=== PATIENT | male | born 1960 | race Caucasian/White ===

== ENCOUNTER → 2017-05-27 | Outpatient (CLI) | payer OTHER ==
[~2017-05-27] MED LIST: LOVASTATIN40 MG PO; ZYRTEC-D1 TABLE1 PO
== END | disposition home or self-care (01) ==
LOC: AMB 07:54
PROC: 0HB6XZZ Excision of Back Skin, External Approach (ICD-10-PCS; principal; 2017-05-27)
DX: L72.0 Epidermal cyst (principal)
CPT/HCPCS: 88304